=== PATIENT | male | born 1985 | race American Indian/Alaskan Native ===

== ENCOUNTER 2019-01-01 05:28 | Emergency (ER) | payer OTHER ==
[2019-01-01 05:55] LABS: Hemoglobin 14.8 gm/dl (11.8-15.2); Mean Corpuscular HGB Conc 34 % (32-34); Mean Corpuscular Volume 93 fl (84-94); Platelet Count 340 K/mm3 (140-440); Red Blood Count 4.62 M/mm3 (3.65-5.03); Red Cell Distribution Width 13.3 % (13.2-15.2)
[2019-01-01 06:19] LABS: BUN/Creatinine Ratio 10; Blood Urea Nitrogen 10 mg/dL (9-20); Calcium 9.2 mg/dL (8.4-10.2); Hemolysis Index 20
[2019-01-01] MEDS ORDERED: ZOFRAN IV ONE (08:31)
[2019-01-01] MEDS ORDERED: NITRO-BID 2% TP ONE (08:31)
[2019-01-01] MEDS ORDERED: MORPHINE IV ONE ×2 (08:31→10:00)
[2019-01-01] MEDS ORDERED: ASPIRIN PO ONE (08:31)
[2019-01-01] MEDS ORDERED: K-DUR PO ONE (08:32)
--- NOTE | 2019-01-01 08:37 | Emergency Department Report ---
HPI - General Chief Complaint: Chest Pain Time Seen by Provider: 01/01/19 08:17 - HPI HPI: Room 5 The patient is a 33-year-old male presenting with chief complaint paresthesia and chest pain. The patient states he went to sleep this morning in his usual state of health at 02:00. The patient states at 04:00 this morning he awakened and noticed the entire left side of his body (left face, left upper extremity, left trunk and left lower extremity) were numb. The patient states he then developed substernal/left-sided chest pain described as a severe cramping/tightness that has been intermittent and associated with shortness of breath, nausea/vomiting and diaphoresis. The patient currently uses chest pain score of 2/10. The patient states that at some time his left-sided numbness resolved, but he is not certain when as he was preoccupied by the chest pain. The patient states his last stress test occurred approximately 2 years ago when he has never had a cardiac catheterization Location: [See above] Duration: [See above] Quality: Tightness Severity:2/10 Modifying factors: [see above] Context: [see above] Mode of transportation: [not driving] ED Past Medical Hx - Past Medical History Previous Medical History?: Yes Hx Psychiatric Treatment: Yes (Anxiety) Additional medical history: Holiday palsy - Surgical History Past Surgical History?: No Additional Surgical History: r) pectorial repair, r) thumb surg - Family History Family history: no significant - Social History Smoking Status: Never Smoker Substance Use Type: Marijuana - Medications Home Medications: Home Medications Medication Instructions Recorded Confirmed Last Taken Type LORazepam [Ativan] 2 mg PO QHS 01/01/19 01/01/19 Unknown History ED Review of Systems ROS: Stated complaint: CHEST PAIN Other details as noted in HPI Constitutional: diaphoresis Eyes: denies: eye pain ENT: denies: throat pain Respiratory: shortness of breath Cardiovascular: chest pain Endocrine: no symptoms reported Gastrointestinal: nausea, vomiting Musculoskeletal: denies: back pain Neurological: paresthesias Physical Exam - Physical Exam Vital Signs: Vital Signs 01/01/19 05:36 Temperature 98.3 F Pulse Rate 106 H Respiratory 18 Rate Blood Pressure 140/84 [Left] O2 Sat by Pulse 98 Oximetry Physical Exam: GENERAL: The patient is well-developed well-nourished male lying on stretcher not appearing to be in acute distress. [] HEENT: Normocephalic. Atraumatic. Extraocular motions are intact. Patient has moist mucous membranes. NECK: Supple. Trachea midline CHEST/LUNGS: Clear to auscultation. There is no respiratory distress noted. HEART/CARDIOVASCULAR: Regular. There is no tachycardia. There is no gallop rub or murmur. ABDOMEN: Abdomen is soft, nontender. Patient has normal bowel sounds. There is no abdominal distention. SKIN: There is no rash. There is no edema. There is no diaphoresis. NEURO: The patient is awake, alert, and oriented. The patient is cooperative. The patient has no focal neurologic deficits. The patient has normal speech. Cranial nerves II through XII grossly intact, no drift MUSCULOSKELETAL: There is no evidence of acute injury. ED Course Vital Signs 01/01/19 05:36 Temperature 98.3 F Pulse Rate 106 H Respiratory 18 Rate Blood Pressure 140/84 [Left] O2 Sat by Pulse 98 Oximetry - Consultations Consultation #1: 01/01/19 10:20 Case discussed with [facility] Dr. Sánchez- Will arrange transfer of patient to [facility] ED Medical Decision Making - Lab Data Result diagrams: 01/01/19 05:40 01/01/19 05:40 Laboratory Tests 01/01/19 01/01/19 01/01/19 05:40 05:40 08:29 WBC 8.5 RBC 4.62 Hgb 14.8 Hct 43.0 MCV 93 MCH 32 MCHC 34 RDW 13.3 Plt Count 340 Lymph % (Auto) Manager Deli Lymph # Manager Deli Add Manual Diff Complete Total Counted 100 Seg Neutrophils % Manager Deli Seg Neuts % (Manual) 32.0 L Band Neutrophils % 0 Lymphocytes % (Manual) 48.0 H Reactive Lymphs % (Man) 0 Monocytes % (Manual) 17.0 H Eosinophils % (Manual) 3.0 Basophils % (Manual) 0 Metamyelocytes % 0 Myelocytes % 0 Promyelocytes % 0 Blast Cells % 0 Nucleated RBC % Not Reportable Seg Neutrophils # Man 2.7 Band Neutrophils # 0.0 Lymphocytes # (Manual) 4.1 Abs React Lymphs (Man) 0.0 Monocytes # (Manual) 1.4 H Eosinophils # (Manual) 0.3 Basophils # (Manual) 0.0 Metamyelocytes # 0.0 Myelocytes # 0.0 Promyelocytes # 0.0 Blast Cells # 0.0 WBC Morphology Not Reportable Hypersegmented Neuts Not Reportable Hyposegmented Neuts Not Reportable Hypogranular Neuts Not Reportable Smudge Cells Not Reportable Toxic Granulation Not Reportable Toxic Vacuolation Not Reportable Dohle Bodies Not Reportable Pelger-Huet Anomaly Not Reportable Deedee Rods Not Reportable Platelet Estimate Consistent w auto Clumped Platelets Not Reportable Plt Clumps, EDTA Not Reportable Large Platelets Few Giant Platelets Not Reportable Platelet Satelliting Not Reportable Plt Morphology Comment Not Reportable RBC Morphology Not Reportable Dimorphic RBCs Not Reportable Polychromasia Not Reportable Hypochromasia Not Reportable Poikilocytosis Not Reportable Anisocytosis 1+ Microcytosis Not Reportable Macrocytosis 1+ Spherocytes Not Reportable Pappenheimer Bodies Not Reportable Sickle Cells Not Reportable Target Cells Not Reportable Tear Drop Cells Not Reportable Ovalocytes Not Reportable Helmet Cells Not Reportable [place] Bodies Not Reportable Bitely Rings Not Reportable Maryneal Cells Not Reportable Bite Cells Not Reportable Crenated Cell Not Reportable Elliptocytes Not Reportable Acanthocytes (Spur) Not Reportable Rouleaux Not Reportable Hemoglobin C Crystals Not Reportable Schistocytes Not Reportable Malaria parasites Not Reportable Polo Bodies Not Reportable Hem Pathologist Commnt No Sodium 141 Potassium 3.2 L Chloride 101.7 Carbon Dioxide 21 L Anion Gap 22 BUN 10 Creatinine 1.0 Estimated GFR > 60 BUN/Creatinine Ratio 10 Glucose 164 H Calcium 9.2 Troponin T < 0.010 < 0.010 - EKG Data -: EKG Interpreted by Me EKG shows normal: sinus rhythm Rate: normal - EKG Data When compared to previous EKG there are: previous EKG unavailable Interpretation: other (no ischemic changes seen) - Radiology Data Radiology results: report reviewed (CT head, chest x-ray), image reviewed (CT head, chest x-ray) interpreted by me: Chest x-ray-no focal infiltrates, no pneumothorax [facility] [address] [place] [address] Cat Scan Report Signed Patient: KELLEY CAPELLAN MR#: [id number] : 1985 Acct:[id number] Age/Sex: 33 / M ADM Date: 01/01/19 Loc: ED Attending Dr: Ordering Physician: MACK MILLER MD Date of Service: 01/01/19 Procedure(s): CT head/brain wo con Accession Number(s): [id number] cc: MACK MILLER MD PROCEDURE: CT HEAD/BRAIN WO CON TECHNIQUE: Computerized tomography of the head was performed without contrast material. CT DOSE LENGTH PRODUCT: 920.48 mGy-cm. HISTORY: left-sided numbness COMPARISONS: None currently available. FINDINGS: There is no evidence for acute ischemia. There is no hemorrhage. There is no midline shift. There is no hydrocephalus. There is no mass. Age appropriate bolaños-white matter attenuation is noted. There is no calvarial fracture. The temporal bones demonstrate aerated mastoid air cells. The middle ears appear unremarkable. Paranasal sinuses are unremarkable. Globes are intact. IMPRESSION: * No acute intracranial findings. This document is electronically signed by Robert Vora MD., January 01 2019 10:56:06 AM ET Transcribed By: TYM Dictated By: ROBERT VORA MD Electronically Authenticated By: ROBERT VORA MD Signed Date/Time: 01/01/19 1058 DD/ TD/TT: 01/01/19950 [facility] [address] [place] [address] XRay Report Signed Patient: KELLEY CAPELLAN MR#: [id number] : 1985 Acct:[id number] Age/Sex: 33 / M ADM Date: 01/01/19 Loc: ED Attending Dr: Ordering Physician: MACK MILLER MD Date of Service: 01/01/19 Procedure(s): XR chest 1V ap Accession Number(s): [id number] cc: MACK MILLER MD Fluoro Time In Minutes: AP CHEST: HISTORY: chest pain AP view of the chest demonstrates a normal mediastinal and cardiac contour with clear lungs and normal bony and soft tissue structures. IMPRESSION: Unremarkable AP chest. Transcribed By: TTR Dictated By: LESA TAVARES JR, MD Electronically Authenticated By: LESA TAVARES JR, MD Signed Date/Time: 01/01/1953 DD/ TD/TT: 01/01/19952 - Differential Diagnosis ACS, TIA, pericarditis, GERD Critical care attestation.: If time is entered above; I have spent that time in minutes in the direct care of this critically ill patient, excluding procedure time. ED Disposition Clinical Impression: Chest pain, Left sided numbness, Hypokalemia Disposition: OP ADMIT IP TO THIS HOSP Is pt being admited?: Yes Condition: Stable Instructions: Chest Pain (ED) Referrals: CHELSEY DEAN MD [Referring] - 3-5 Days Time of Disposition: 10:25 (awaiting transport)
[2019-01-01 08:57] LABS: Anisocytosis 1+; Basophils % (Manual) 0 % (0.0-1.8); Macrocytosis 1+; Total Cells Counted 100
[2019-01-01 08:58] LABS: Large Platelets Few; Platelet Estimate Consistent w Auto
--- NOTE | 2019-01-01 09:56 | XRay Report ---
AP CHEST: HISTORY: chest pain AP view of the chest demonstrates a normal mediastinal and cardiac contour with clear lungs and normal bony and soft tissue structures. IMPRESSION: Unremarkable AP chest.
[2019-01-01] MEDS ORDERED: NACL 0.9% 1000 ML 1,000 ML ONE (09:58)
[2019-01-01] MEDS ORDERED: NACL 0.9% 1000 ML 1,000 ML IV ONE (10:00)
--- NOTE | 2019-01-01 10:58 | Cat Scan Report ---
PROCEDURE: CT HEAD/BRAIN WO CON TECHNIQUE: Computerized tomography of the head was performed without contrast material. CT DOSE LENGTH PRODUCT: 920.48 mGy-cm. HISTORY: left-sided numbness COMPARISONS: None currently available. FINDINGS: There is no evidence for acute ischemia. There is no hemorrhage. There is no midline shift. There is no hydrocephalus. There is no mass. Age appropriate bolaños-white matter attenuation is noted. There is no calvarial fracture. The temporal bones demonstrate aerated mastoid air cells. The middle ears appear unremarkable. Paranasal sinuses are unremarkable. Globes are intact. IMPRESSION: * No acute intracranial findings. This document is electronically signed by Robert Ferguson MD., January 01 2019 10:56:06 AM ET
[2019-01-01 11:43] VITALS: BP 138/75
== END 2019-01-01 11:30 | disposition admitted as inpatient to this hospital (09) ==
LOC: ED 05:28
DX: R07.89 Other chest pain (principal); R20.2 Paresthesia of skin; R06.02 Shortness of breath; E87.6 Hypokalemia; R11.2 Nausea with vomiting, unspecified; F41.9 Anxiety disorder, unspecified; F12.10 Cannabis abuse, uncomplicated; Z86.69 Personal history of other diseases of the nervous system and sense organs
CPT/HCPCS: 36415; 70450; 71045; 80048; 84484; 85007; 85025; 93005; 93010; 96361; 96374; 96375; 99285; J2270; J2405; J7030